=== PATIENT | male | born 2005 | race Caucasian/White ===

== ENCOUNTER 2023-07-12 12:57 | Emergency (ER) | payer SELFPAY ==
[2023-07-12 12:59] VITALS: PULSE 89; RESP 16; TEMP 36.7; O2SAT 100; BMI 29.9
[2023-07-12 13:03] VITALS: BP 147/78; PULSE 85; RESP 16; TEMP 36.7; O2SAT 99
--- NOTE | 2023-07-12 13:20 | RAD_ITS ---
INDICATION: injury EXAMINATION/TECHNIQUE: X-RAY - RIGHT XR Forearm 2 Views 3 VIEWS COMPARISON: No relevant prior comparison study available FINDINGS: SOFT TISSUES: No soft tissue swelling or gas. No radiopaque foreign body. BONES/JOINTS: No acute fracture or subluxation.. Normal alignment. Preservation of the joint space.. No sclerotic or destructive changes observed. RAD/Forearm 2 Views IMPRESSION: Negative. Electronically Signed: Mike Yoon MD at 13:50 EST ,
[2023-07-12] MEDS: HYDROcodone Bitartrate/Apap 5/325 Tablet PO (13:31)
--- NOTE | 2023-07-12 13:39 | EX.ED.GENINJ ---
HPI <ANTONIO Casarez - Last Filed: 07/12/23 14:31> History of Present Illness Chief Complaint: Laceration Narrative Narrative: Patient is a 18-year-old male with no significant medical history presents to the emergency department for right forearm injury, right forearm pain. Patient was working on a tractor when he cut himself to the right forearm. Secondary to the amount of blood loss, they put a significantly tight bandage on him as well as a tourniquet. Patient arrives here in significant pain to his right arm. PFSH <ANTONIO Casarez - Last Filed: 07/12/23 14:31> [facility] Home Medications NK 04/10/21 [History Last Taken Unknown] Allergy/AdvReac Type Severity Reaction Status Date / Time No Known Allergies Allergy Verified 04/10/21 08:52 Social History (Updated 04/10/21 @ 08:53 by Kelly Mcpherson) Smoking Status: Never smoker ROS <ANTONIO Casarez - Last Filed: 07/12/23 14:31> ROS ED ROS Narrative Constitutional: Negative for fever, chills, weight loss, weakness Eyes: Negative for vision loss, vision change, double vision ENT: Negative for any sore throat, ear pain, congestion Cardiovascular: Negative for any chest pain, tightness, palpitations Respiratory: Negative for any cough, sputum production, hemoptysis, dyspnea, dyspnea on exertion, orthopnea Gastrointestinal: Negative for any abdominal pain, nausea, vomiting, diarrhea, constipation, blood in stool, blood in vomit : Negative for any urinary frequency, dysuria, retention, blood in urine Muscle skeletal: Negative for any myalgias, arthralgias, neck pain, back pain. Positive for right arm pain, right arm swelling, right arm laceration Neurological: Negative for any headache, syncope, numbness or tingling, dizziness Skin: Negative for any rashes, lumps, itching, abrasions, lacerations Psychiatric: Negative for any depression, anxiety, stress, suicidal ideation, homicidal ideation Hematologic: Negative for any easy bruising, excessive bruising, easy bleeding Allergies: Negative for any eczema, hives, rash EXAM <ANTONIO Casarez - Last Filed: 07/12/23 14:31> Physical Exam Narrative Exam Narrative: Vital signs reviewed. Patient appears to be in mild amount of discomfort HEET: Head normocephalic atraumatic, TMs clear bilaterally. Posterior pharynx is clear, moist mucous membranes. Nares clear bilaterally. Neck: Supple with no lymphadenopathy or tenderness. No signs of meningismus. Cardiac: Regular rate and rhythm no murmurs gallops or rubs, equal peripheral pulses bilaterally. Respiratory: Lungs clear to auscultation bilaterally. No chest tenderness. Abdomen: Soft, nontender, nondistended. No abdominal bruit or pulsatile masses. No hepatosplenomegaly Extremities: Patient does have a 2 cm vertical incision to the right medial forearm. The laceration is full-thickness however it is not significant in size. Patient does have significant swelling around the area of the forearm. This area is hard, patient has poor capillary refill, patient has difficulty with moving his hand, patient has significant pain. Pain out of proportion. Neuro: Cranial nerves II through XII intact, no focal neurological deficits. Skin: Clean dry and intact with no rash, purpura, petechiae, vesicles or pustules. Backs/flank: No CVA tenderness, no midline spinal tenderness, no deformity. Psych: Normal mood and affect. No SI, HI or acute psychosis. Const Vital Signs: 07/12/23 12:59 07/12/23 13:03 Temperature 98.0 F 98.0 F Temperature Source Oral Temporal Pulse Rate 89 85 Respiratory Rate 16 16 Blood Pressure 147/78 H Blood Pressure Mean 101 Pulse Ox 100 99 Oxygen Delivery Method Room Air Room Air <Dr. Amos Dillon DO - Last Filed: 07/12/23 15:58> Physical Exam Const Vital Signs: 07/12/23 12:59 07/12/23 13:03 Temperature 98.0 F 98.0 F Temperature Source Oral Temporal Pulse Rate 89 85 Respiratory Rate 16 16 Blood Pressure 147/78 H Blood Pressure Mean 101 Pulse Ox 100 99 Oxygen Delivery Method Room Air Room Air OTTONIEL <ANTONIO Casarez - Last Filed: 07/12/23 14:31> [facility] Lab Data Labs: Laboratory Results - last 24 hr 07/12/23 14:00 WBC 8.0 RBC 5.11 Hgb 14.7 Hct 42.5 MCV 83.2 MCH 28.8 MCHC 34.6 RDW Std Deviation 38.5 RDW Coeff of Noe 12.7 Plt Count 131 L MPV 11.9 Immature Gran % (Auto) 0.300 Neut % (Auto) 73.3 H Lymph % (Auto) 15.0 L Haines % (Auto) 10.1 H Eos % (Auto) 0.8 Baso % (Auto) 0.5 Absolute Neuts (auto) 5.9 Absolute Lymphs (auto) 1.20 Nucleated RBC % 0 PT 13.9 INR 1.1 Sodium 140 Potassium 3.3 L Chloride 105 Carbon Dioxide 32.0 Anion Gap 3 L BUN 16 Creatinine 1.00 Estim Creat Clear Calc 133.17 Est GFR (MDRD) Af Amer 122 Est GFR (MDRD) Non-Af 101 BUN/Creatinine Ratio 16.0 Glucose 91 Calcium 8.8 Radiography Diagnostic Testing: Clinical Impression(s) from Imaging Studies Forearm X-Ray 07/12/23 13:20 IMPRESSION: Negative. Electronically Signed: Mike Yoon MD at 13:50 EST , Treatment and Re-Evaluation Narrative: Patient appears to be in mild to moderate discomfort to the right arm. Patient presents to the emergency department complaints of laceration of the right forearm. Differential diagnosis includes forearm laceration, hematoma, compartment syndrome, cellulitis. Physical examination is concerning for compartment syndrome. Patient has multiple signs and symptoms, I did perform a two-view x-ray, interpreted by ER physician this was negative. Patient was given [place] here, patient states that did not help his pain. He was then redosed with IV morphine, Zofran. I spoke with orthopedics here, Dr. Fatima, I did relay to him that a [place] needle was in the ER, he said that we could do it here in the emergency department ourselves or we could transfer the patient as a trauma. At this time, patient be transferred to [facility] trauma center. I spoke with ER attending, she will accept the patient. Patient will have the wound irrigated, lightly dressed. The wound was not closed, will be evaluated by orthopedics up at [facility]. I spoke with the patient at length regarding this, he understands the importance of follow-up and to be transferred. Local squad will be here in less than 20 minutes. Patient is happy with the plan of care, patient stable for transfer to the [facility] ER <Dr. Amos Dillon, DO - Last Filed: 07/12/23 15:58> [facility] Narrative Medical decision making narrative: Patient appears to be in mild to moderate discomfort to the right arm. Patient presents to the emergency department complaints of laceration of the right forearm. Differential diagnosis includes forearm laceration, hematoma, compartment syndrome, cellulitis. Physical examination is concerning for compartment syndrome. Patient has multiple signs and symptoms, I did perform a two-view x-ray, interpreted by ER physician this was negative. Patient was given [place] here, patient states that did not help his pain. He was then redosed with IV morphine, Zofran. I spoke with orthopedics here, Dr. Fatima, and he did recommend transfer the patient as a trauma. At this time, patient be transferred to [facility] trauma center. I spoke with ER attending, she will accept the patient. Patient will have the wound irrigated, lightly dressed. The wound was not closed, will be evaluated by orthopedics up at [facility]. I spoke with the patient at length regarding this, he understands the importance of follow-up and to be transferred. Local squad will be here in less than 20 minutes. Patient is happy with the plan of care, patient stable for transfer to the [facility] ER This patient was seen with a PA/SENIOR CLIENT ADVISOR Individually assessed they patient including history and physical. I have reviewed everything on the chart that is available and agree with the documentation provided by the PA/SENIOR CLIENT ADVISOR including discussion about the assessment, treatment plan, discussion, and return precautions. Patient presenting with laceration to the right medial forearm. It is unclear how deep this is however on x-rays of the right forearm I do not see any acute fractures with the patient and there is no subcutaneous air septum is superficial. Patient had a tourniquet placed above the elbow. Prior to arrival EMS who wrapped his arm very tightly with Kerlix. Patient present with decreased sensation in the right arm and discoloration with purple hands. This was removed and the laceration was not significantly bleeding. I do have concern for compartment syndrome in the right arm as he does have pain out of proportion, pallor, decreased pulse on the right hand and paresthesias. His cap refill is delayed to 8 to 7 seconds and his pulses still palpable. Discussed with orthopedics who recommend transfer as a trauma. This was discussed with the patient. Patient's pain was treated with morphine. Patient was discussed with [facility] and they did accept the patient ER to ER. Impression 1. Right forearm lacerations 2. Right forearm compartment syndrome Lab Data Attestation: I reviewed the patient's lab results. Labs: Laboratory Results - last 24 hr 07/12/23 14:00 WBC 8.0 RBC 5.11 Hgb 14.7 Hct 42.5 MCV 83.2 MCH 28.8 MCHC 34.6 RDW Std Deviation 38.5 RDW Coeff of Noe 12.7 Plt Count 131 L MPV 11.9 Immature Gran % (Auto) 0.300 Neut % (Auto) 73.3 H Lymph % (Auto) 15.0 L Haines % (Auto) 10.1 H Eos % (Auto) 0.8 Baso % (Auto) 0.5 Absolute Neuts (auto) 5.9 Absolute Lymphs (auto) 1.20 Nucleated RBC % 0 PT 13.9 INR 1.1 Sodium 140 Potassium 3.3 L Chloride 105 Carbon Dioxide 32.0 Anion Gap 3 L BUN 16 Creatinine 1.00 Estim Creat Clear Calc 133.17 Est GFR (MDRD) Af Amer 122 Est GFR (MDRD) Non-Af 101 BUN/Creatinine Ratio 16.0 Glucose 91 Calcium 8.8 Radiography Diagnostic Testing: Clinical Impression(s) from Imaging Studies Forearm X-Ray 07/12/23 13:20 IMPRESSION: Negative. Electronically Signed: iMke Yoon MD at 13:50 EST , Discharge Plan Triage Chief Complaint: Laceration ED Midlevel Provider: Sarath Souza ED Provider: Amos Dillon Dx/Rx/DC Orders Clinical Impression: Compartment syndrome, Laceration of forearm Prescriptions: No Action NK Primary Care Provider: Care Physician,No Primary Referrals: Care Physician,No Primary [Primary Care Provider] - Disposition Disposition: Acute Care Hospital Discharge Location: [facility] Discharge Date/Time: 07/12/23 15:06
[2023-07-12] MEDS: Morphine 4 MG/ML Syringe IV (13:59)
[2023-07-12] MEDS: Ondansetron ODT 4 MG Tablet PO (14:03)
[2023-07-12 14:14] LABS: Absolute Neutrophil Count 5.9 X10^3/uL (2.0-7.7); Basophil# 0.04 X10^3/uL; Basophil% 0.5 % (0-1); Eosinophil# 0.06 X10^3/uL; Eosinophils% 0.8 % (0-5); Hematocrit 42.5 % (40-54); Hemoglobin 14.7 g/dL (13.0-16.5); Mean Corp Hgb Conc 34.6 g/dL (32-36); Mean Corpuscular Hgb 28.8 pg (27.0-32.0); Mean Corpuscular Volume 83.2 fL (80-94); Mean Platelet Vol. 11.9 fl (6.2-12.0); Monocyte# 0.81 X10^3/uL; Monocyte% 10.1 % (0-10); NRBC Flagged by Analyzer 0 % (0-5); Neutrophil # 5.86 X10^3/uL (2.7-7.7); Neutrophil % 73.3 % (47-70); Platelet Count 131 K/mm3 (150-450); RBC Distribution Width CV 12.7 % (11.6-14.6); RBC Distribution Width SD 38.5 fl (35.1-43.9); Red Blood Count 5.11 M/mm3 (4.6-6.2)
[2023-07-12 14:29] LABS: International Normalized Ratio 1.1; Prothrombin Time (Protime)PT. 13.9 SECONDS (11.7-14.9)
[2023-07-12 14:32] LABS: Anion Gap 3 (5-15); BUN 16 mg/dL (7-18); Calcium,Total 8.8 mg/dL (8.5-10.1); Chloride 105 mmol/L (98-107); EST Glomerular Filtration Rate 101 mL/min (>60); Est Glom Filt Rate - Afr Amer 122 mL/min (>60); Estimated Creatinine Clearance 133.17 ml/min; Glucose 91 mg/dL (74-106); Potassium 3.3 mmol/L (3.5-5.1); Sodium Level 140 mmol/L (136-145)
== END 2023-07-12 15:06 | disposition short-term general hospital (02) ==
PROVIDERS: Nurse Practitioner; Emergency Provider Student in an Organized Health Care Education/Training Program; Visit Provider Student in an Organized Health Care Education/Training Program
DX: S51.811A Laceration without foreign body of right forearm, initial encounter (principal); T79.A11A Traumatic compartment syndrome of right upper extremity, initial encounter; X58.XXXA Exposure to other specified factors, initial encounter
CPT/HCPCS: 73090; 80048; 85025; 85610; 96374; 99285; A4216